=== PATIENT | male | born 1955 | race Caucasian/White ===

== ENCOUNTER → 2017-05-31 | Outpatient (CLI) | payer BC ==
[~2017-05-31] MED LIST: AMOX1TAB61 PO; ATOR40TA PO; CLON0.5T3 PO; DOXY100C2 PO; ERGO500027 PO; FENT1PAT21 TD; FLUT12AE IH; HYDR4TAB45 PO; LANS15TA6 PO; LEVO100T PO; LOSA25TA PO; MONT10TA9 PO; MULT-208 PO; PRED2.5T PO; PREG200C PO
== END | disposition home or self-care (01) ==
LOC: SPEC 13:09
PROVIDERS: ATTEND Podiatrist Foot & Ankle Surgery
DX: M86.9 Osteomyelitis, unspecified (principal)
CPT/HCPCS: 87071; 87075; 87186; 87205

== ENCOUNTER 2017-06-08 10:02 | Day surgery (SDC) | payer BC ==
[~2017-06-08] VITALS: Ht 170.2 cm; Wt 74.8 kg
[~2017-06-08 10:02] MED LIST changes: -AMOX1TAB61 PO; -ATOR40TA PO; -CLON0.5T3 PO; -DOXY100C2 PO; -ERGO500027 PO; -FENT1PAT21 TD; -FLUT12AE IH; -HYDR4TAB45 PO; +HYDROmorphone 2 MG/ML VIAL IV PRN; +IV RINGERS,LACTATED 1000ML 1,000 ML IV SCH; -LANS15TA6 PO; -LEVO100T PO; +LIDOCAINE 1% 1 ML SYRINGE. ID PRN; -LOSA25TA PO; -MONT10TA9 PO; +MORPHINE SULFATE 2 MG/ML DISP.SYRIN. IV PRN; -MULT-208 PO; +ONDANSETRON PF 4 MG/2 ML VIAL. IV PRN; -PRED2.5T PO; -PREG200C PO; +PROCHLORPERAZINE 10 MG/2 ML VIAL. IV PRN; +fentaNYL PF VIAL 100 MCG/2 ML VIAL IV PRN
[2017-06-08] MEDS ORDERED: POVIDONE-IODINE 10% TOPICAL OINTMENT 28GM TUBE. TP ONE (10:17)
[2017-06-08] MEDS ORDERED: LIDOCAINE 1% 20 ML VIAL. ONE ×2 (10:17→11:59)
[2017-06-08] MEDS ORDERED: DEXAMETHASONE SOD PHOS 4 MG/ML VIAL ONE (10:17)
[2017-06-08] MEDS ORDERED: BUPIVACAINE MPF 0.5% 30 ML VIAL. ONE ×2 (10:17→11:59)
[2017-06-08] MEDS ORDERED: MONT10TA9 PO (10:30)
[2017-06-08] MEDS ORDERED: AMOX1TAB61 PO (10:30)
[2017-06-08] MEDS ORDERED: PRED2.5T PO (10:30)
[2017-06-08] MEDS ORDERED: FENT1PAT21 TD (10:30)
[2017-06-08] MEDS ORDERED: PREG200C PO (10:30)
[2017-06-08] MEDS ORDERED: LEVO100T PO (10:30)
[2017-06-08] MEDS ORDERED: ATOR40TA PO (10:30)
[2017-06-08] MEDS ORDERED: DOXY100C2 PO (10:30)
[2017-06-08] MEDS ORDERED: LOSA25TA PO (10:30)
[2017-06-08] MEDS ORDERED: ERGO500027 PO (10:30)
[2017-06-08] MEDS ORDERED: LANS15TA6 PO (10:30)
[2017-06-08] MEDS ORDERED: CLON0.5T3 PO (10:30)
[2017-06-08] MEDS ORDERED: HYDR4TAB45 PO (10:30)
[2017-06-08] MEDS ORDERED: FLUT12AE IH (10:30)
[2017-06-08] MEDS ORDERED: MULT-208 PO (10:30)
[2017-06-08 10:42] LABS: BASO # 0.1 x10^3/uL (0.0-0.2); BASO % 1 % (0-3); EOS % 1 % (0-3); HEMATOCRIT 41.5 % (39.0-53.0); HEMOGLOBIN 13.5 g/dL (13.0-17.5); LYMPH # 2.5 x10^3/uL (1.0-4.8); LYMPH % 23 % (24-48); MEAN CORPUSCULAR HEMOGLOBIN 29 pg (25-35); MEAN CORPUSCULAR HGB CONC 33 g/dL (31-37); MEAN CORPUSCULAR VOLUME 89 fL (79-100); MONO % 11 % (0-9); NEUT % 64 % (31-73); PLATELET COUNT 371 x10^3/uL (140-400); RED BLOOD COUNT 4.68 x10^6/uL (4.30-5.70); RED CELL DISTRIBUTION WIDTH 15.3 % (11.5-14.5); WHITE BLOOD COUNT 10.5 x10^3/uL (4.0-11.0)
[2017-06-08 10:53] LABS: CALCIUM 9.6 mg/dL (8.5-10.1); CREATININE 1.4 mg/dL (0.7-1.3); GFR 51.5; POTASSIUM 3.5 mmol/L (3.5-5.1)
[2017-06-08 10:59] LABS: ALBUMIN 3.4 g/dL (3.4-5.0); ALBUMIN/GLOBULIN RATIO 0.9 (1.0-1.7); TOTAL BILIRUBIN 0.4 mg/dL (0.2-1.0)
[2017-06-08] MEDS ORDERED: fentaNYL PF VIAL 100 MCG/2 ML VIAL ONE (11:44)
[2017-06-08] MEDS ORDERED: MIDAZOLAM HCL/PF 2 MG/2 ML VIAL. ONE (11:44)
[2017-06-08] MEDS ORDERED: LIDOCAINE 2% PF Vial for OR 5 ML VIAL. ONE (11:44)
[2017-06-08] MEDS ORDERED: ONDANSETRON PF 4 MG/2 ML VIAL. ONE (11:44)
[2017-06-08] MEDS ORDERED: PROPOFOL 20 ML IV ONE (11:44)
[2017-06-08] MEDS ORDERED: DEXAMETHASONE SOD PHOS 20 MG/5 ML VIAL. ONE (11:44)
[2017-06-08 12:57] LABS: C-REACTIVE PROTEIN 8.6 mg/L (0-3.3)
[2017-06-08] MEDS ORDERED: ePHEDrine PF IN SALINE 50 MG/5 ML DISP.SYRIN IV ONE (13:09)
[2017-06-08] MEDS ORDERED: SEVOFLURANE 31 TO 60 MINUTES. IH ONE (13:22)
[2017-06-08] MEDS ORDERED: BACITRACIN TOPICAL OINT 14GM TUBE. TP ONE (13:42)
--- NOTE | 2017-06-08 14:04 | PDOC4 ---
OPERATIVE NOTE: Surgeon: Pepe Pre operative diagnosis: Osteomyelitis 2nd digit right foot, venous stasis delayed healing ulcerations bilateral ankle Post operative diagnosis: Same Procedure: 2nd digit amputation right foot. Biopsy of ulceration bilateral ankle. Preparation of wound bed bilateral ankle ulceration. Application of Allograft Amnio-fix bilateral ankle wound Anesthesia: LMA with local Hemostasis: right ankle tourniquet at 250mmHg EBL: 1mL Materials: Amniofix allograft Specimen: 2nd digit right foot, 2mm punch biopsy bilateral ankle wounds Intraoperative findings: Note no proximal sinus tract 2nd toe. destruction of distal phalanx 2nd toe. Full thickness ulceration bilateral anterior ankle. Upon debridement of devitalized tissue to granular base measures the following Right ankle anterior 1.7x2.5x0.2cm and just lateral to this 1.8x.1.5x0.1cm. Left ankle proximal wound 1.1x1.6x0.2cm and just distal to 2.3x1.5x0.2cm Patient tolerated anesthesia and procedure well transferred to PACU with VSS and VSI to bilateral foot FRANCISCO HERNÁNDEZ DPM Jun 08, 2017 14:04
[2017-06-08] MEDS ORDERED: HYDROmorphone 4 MG TABLET PO ONE (14:30)
[2017-06-08 15:04] VITALS: BP 140/78
--- NOTE | 2017-06-08 15:31 | RAD ---
Indication postop. AP oblique and lateral views of the right foot were obtained. The patient is status post amputation of the second toe. Postoperative changes are seen involving the soft tissues. There are degenerative changes between the first and second cuneiform bones. Soft tissue calcifications are noted as well as vascular calcification. IMPRESSION: Status post amputation of the second toe. No unexpected finding seen
--- NOTE | 2017-06-08 15:36 | OP ---
DATE OF SURGERY: 06/08/2017 PREOPERATIVE DIAGNOSES: Osteomyelitis, second digit, right foot and also venous stasis ulceration of bilateral ankles, delayed healing. POSTOPERATIVE DIAGNOSES: Osteomyelitis, second digit, right foot and also venous stasis ulceration of bilateral ankles, delayed healing. PROCEDURE: 1. Second digit amputation, right foot. 2. Biopsy of ulceration, bilateral ankles. 3. Preparation of wound bed, bilateral ankle ulcerations. 4. Application of allograft AmnioFix to bilateral ankle wounds. SURGEON: Olayinka Cantu DPM ANESTHESIA: LMA with local. HEMOSTASIS: Right ankle tourniquet at 250 mmHg. INDICATIONS: The patient is a 62-year-old male who was seen in the office last week May 31. He was noted to have a draining ulceration, full thickness to the second digit with probing and sinus tracts. X-ray was taken and showed destruction of the distal phalanx consistent with osteomyelitis. Discussed the preoperative diagnosis as well as possible risks, benefits, and complications. The patient wished to proceed with outpatient surgery, thus he was started on antibiotics and scheduled today for a second digit amputation as well as biopsy and wound bed preparation and application of allograft. Due to the amount of time he has had this greater than 10 years, recommended biopsy, which he consented to. Discussed possible risks, benefits, complications. All questions were answered. No guarantees were made. DESCRIPTION OF PROCEDURE: The patient was transported to the operating room via cart. He was given 1 gram of IV Ancef preoperatively. The bilateral legs were prepped and draped in the usual aseptic manner. We gave a digital block to the second toe consisting of a 1:1 mixture of 1% lidocaine plain and 0.5% Marcaine plain. Also, gave supplemental injection local infiltrative block to bilateral ankle wounds. Next, the feet were prepped and draped in the usual aseptic manner. Attention was directed first to the right foot. The right Esmarch bandage was used to exsanguinate the right foot and the right calf tourniquet was inflated to 250 mmHg. Attention was directed to the second digit where a tennis racquet incision was made over the second toe and deepened to the level of the second metatarsophalangeal joint. This was disarticulated at the MPJ and noted the infection seemed to be localized to the toe. There was no proximal ____. There was no sinus tract. There was no devitalized tissue left behind. The metatarsal head was white and glistening. At this time, small vessels were cauterized. We took a wound culture, aerobic and anaerobic and cauterized small vessels and copiously irrigated the wound with sterile saline and reapproximated the skin with 4-0 nylon. A postop dressing was applied with Betadine-soaked Adaptic gauze, 4 x 4, Kerlix bandage. The ankle tourniquet was deflated. Next, the attention was directed to the right ankle wounds, used a curette to prep the wound bed and devitalized tissue down to granular base. Next, used a 2 mm punch biopsy to obtain a biopsy of this wound. The biopsy was sent to pathology and note on the right ankle, there was an anterior wound measuring 1.7 x 2.5 x 0.2 cm and just lateral to this wound, there was a second wound 1.8 x 1.5 x 0.1 cm. Next, applied AmnioFix allograft to the right ankle and applied antibiotic ointment and Adaptic gauze to keep moist, then applied 4 x 4 gauze, Kerlix bandage roll. Decision was made not to apply Steri-Strips because they were concerned with the friability of his skin. Next, attention was directed to the left ankle and again, the wound was prepped with a curette down to debride devitalized tissue to granular base. A 2 mm punch biopsy was taken from both ulcerations and sent to pathology for further evaluation. The proximal wound upon debridement measured 1.1 x 1.6 x 0.2 cm and just distal to this measured 2.3 x 1.5 x 0.2 cm. Applied the allograft AmnioFix and again applied antibiotic ointment as well as Adaptic gauze, 4 x 4s, and a Kerlix bandage. Then, both legs were wrapped with Webril, soft roll as well as 4-inch and a 6-inch Nile bandage to control swelling. The patient tolerated both anesthesia and procedure well and was transported to the PACU with vital signs stable and vascular status intact. The patient is to have x-rays taken in the PACU. He is to have a surgical shoe to bilateral foot and he is to keep dressings clean, dry and intact until followup appointment in 1 week in the [facility] office Monday. The patient to call if he has any problems. OLAYINKA CANTU DPM DR: Jovanny JOB#: [id number] / [id number]
--- NOTE | 2017-06-13 16:19 | PATHOLOGY ---
PATHOLOGY REPORT * * * * * * * * FINAL DIAGNOSIS: A. Right foot second toe, amputation: - Acute and chronic cellulitis and osteomyelitis of distal toe with destruction of distal phalangeal bone. B. Right ankle biopsy: - Segment of dense fibrous tissue identified. C. Left ankle biopsy: - Segments of dense fibrous tissue with focal granulation tissue and mild acute inflammation. (JPM:saul; 06/13/2017) REPORT ELECTRONICALLY SIGNED BY: Humble Bedolla M.D. DATE/TIME: 06/13/2017 16:18 * * * * * * * * GROSS PATHOLOGY: A. The specimen is received in formalin, labeled "Atul Brumfield, right foot second toe" and consists of a toe amputation specimen disarticulated at the metatarsophalangeal joint measuring 5.8 x 2.2 x 2.1 cm. The soft tissue at the margin resection appears grossly viable. The skin surface is pink-foster to joy, wrinkled and focally desquamated. The nail is absent. At the distal tip the skin has a ragged, congested appearance. The soft tissue has a joy-yellow, focally congested cut surface. The bone is joy-yellow and trabeculated. No additional abnormalities are noted. The section of the skin lesion is submitted in cassette A1 and a full-thickness, longitudinal section is submitted in cassettes A2-A4 after fixation and decalcification. B. The specimen is received in formalin, labeled "Atul Brumfield, right ankle biopsy" and consists of a core of joy-foster, firm tissue measuring 0.4 cm in length by 0.2 cm in diameter. The specimen is entirely submitted in cassette B1 after fixation and brief decalcification. C. The specimen is received in formalin, labeled "Atul Brumfield, left ankle biopsy" and consists of two cores of joy-foster, firm tissue measuring 0.5 and 1.0 cm in length each with a diameter of 0.2 cm. The specimens are entirely submitted in cassette C1 after fixation and brief decalcification. (MASOUD; 06/09/2017) INITIAL CPT CODE(S): A; 74127, 23438 B; 46354 C; 81742 Professional services performed by [facility] at [address] [address] Technical services performed by [facility] at [address] [place] [address], [address], [place] [address]. SPECIMEN(S) RECEIVED: A.Right foot second toe B.Right ankle biopsy x 1 C.Left ankle biopsy x 2 CLINICAL HISTORY: Osteomyelitis PATIENT: ATUL BRUMFIELD JR /AGE: 704/23/1955 (Age: 62) PATIENT #: [id number] ALT CASE #: SPECIMEN COLLECTION DATE: 06/08/2017 SPECIMEN RECEIVED DATE: 06/09/2017 [facility] - [id number] [place] [address] - PHONE: [phone] * * * END OF REPORT * * *
== END 2017-06-08 15:39 | disposition home or self-care (01) ==
LOC: SURG 10:02 → MERGE 12:00 → SURG 15:39
PROVIDERS: ATTEND Podiatrist Foot & Ankle Surgery
DX: M86.8X7 Other osteomyelitis, ankle and foot (principal); I87.8 Other specified disorders of veins; L97.329 Non-pressure chronic ulcer of left ankle with unspecified severity; L97.319 Non-pressure chronic ulcer of right ankle with unspecified severity; J45.909 Unspecified asthma, uncomplicated; E78.00 Pure hypercholesterolemia, unspecified; Z87.39 Personal history of other diseases of the musculoskeletal system and connective tissue; E03.9 Hypothyroidism, unspecified; F41.9 Anxiety disorder, unspecified; F32.9 Major depressive disorder, single episode, unspecified; I12.9 Hypertensive chronic kidney disease with stage 1 through stage 4 chronic kidney disease, or unspecified chronic kidney disease; N18.3 Chronic kidney disease, stage 3 (moderate); M19.91 Primary osteoarthritis, unspecified site; Z98.42 Cataract extraction status, left eye; Z98.41 Cataract extraction status, right eye; Z86.69 Personal history of other diseases of the nervous system and sense organs
CPT/HCPCS: 11042; 11100; 11101; 15271; 28820; 36415; 73630; 80053; 85025; 85651; 86140; 87071; 87075; 87205; C1713; C1769; J0690; J1100; J2250; J2405; J2704; J3010; J3490; 88304; 88305; 88311; J2001

== ENCOUNTER 2017-11-30 09:50 | Day surgery (SDC) | payer BC ==
[2017-11-30] MEDS: IV RINGERS,LACTATED 1000ML 1,000 ML IV (07:00)
[~2017-11-30 09:50] MED LIST changes: +HYDROmorphone 2 MG/ML VIAL IV; -HYDROmorphone 2 MG/ML VIAL IV PRN; -IV RINGERS,LACTATED 1000ML 1,000 ML IV SCH; -LIDOCAINE 1% 1 ML SYRINGE. ID PRN; +LIDOCAINE 1% PF 2 ML VIAL. ID; +MORPHINE SULFATE 2 MG/ML DISP.SYRIN. IV; -MORPHINE SULFATE 2 MG/ML DISP.SYRIN. IV PRN; +ONDANSETRON PF 4 MG/2 ML VIAL. IV; -ONDANSETRON PF 4 MG/2 ML VIAL. IV PRN; +PROCHLORPERAZINE 10 MG/2 ML VIAL. IV; -PROCHLORPERAZINE 10 MG/2 ML VIAL. IV PRN; +fentaNYL PF VIAL 100 MCG/2 ML VIAL IV; -fentaNYL PF VIAL 100 MCG/2 ML VIAL IV PRN
[2017-11-30] MEDS ORDERED: POVIDONE-IODINE 10% TOPICAL OINTMENT 28GM TUBE. TP (10:34)
[2017-11-30] MEDS ORDERED: DEXAMETHASONE SOD PHOS 4 MG/ML VIAL (10:34)
[2017-11-30] MEDS ORDERED: LIDOCAINE 2% PF Vial for OR 5 ML VIAL. (11:44)
[2017-11-30] MEDS ORDERED: PROPOFOL 20 ML IV (11:44)
[2017-11-30] MEDS ORDERED: ONDANSETRON PF 4 MG/2 ML VIAL. (11:44)
[2017-11-30] MEDS ORDERED: FAMOTIDINE 20 MG/2 ML VIAL (11:44)
[2017-11-30] MEDS ORDERED: DEXAMETHASONE SOD PHOS 20 MG/5 ML VIAL. (11:44)
[2017-11-30] MEDS ORDERED: fentaNYL PF VIAL 100 MCG/2 ML VIAL (11:45)
[2017-11-30] MEDS ORDERED: MIDAZOLAM HCL/PF 2 MG/2 ML VIAL. (11:45)
[2017-11-30] MEDS: BUPIVACAINE MPF 0.5% 30 ML VIAL. (12:22)
[2017-11-30] MEDS: LIDOCAINE 1% PF 30 ML VIAL. (12:22)
[2017-11-30] MEDS ORDERED: ePHEDrine PF IN SALINE 50 MG/5 ML DISP.SYRIN IV (12:28)
[2017-11-30] MEDS ORDERED: SEVOFLURANE 31 TO 60 MINUTES. IH (12:40)
[2017-11-30] MEDS: HYDROcodone/APAP 5/325MG 1 TAB TABLET PO (13:47)
== END 2017-11-30 14:25 | disposition home or self-care (01) ==
LOC: SURG 09:50
DX: M86.672 Other chronic osteomyelitis, left ankle and foot (principal); L97.529 Non-pressure chronic ulcer of other part of left foot with unspecified severity; Z89.422 Acquired absence of other left toe(s); Z85.828 Personal history of other malignant neoplasm of skin; E78.00 Pure hypercholesterolemia, unspecified; I10 Essential (primary) hypertension; J45.909 Unspecified asthma, uncomplicated; Z90.49 Acquired absence of other specified parts of digestive tract; Z86.010 Personal history of colon polyps; M19.90 Unspecified osteoarthritis, unspecified site; K21.9 Gastro-esophageal reflux disease without esophagitis; E03.9 Hypothyroidism, unspecified; F32.9 Major depressive disorder, single episode, unspecified; F41.9 Anxiety disorder, unspecified; Z98.52 Vasectomy status; E66.9 Obesity, unspecified
CPT/HCPCS: 28820; 73630; 88305; 88311; C1769; J0690; J1100; J2250; J2405; J2704; J3010; J3490; S0028

== ENCOUNTER 2018-01-12 10:36 | Day surgery (SDC) | payer BC ==
[~2018-01-12 10:36] MED LIST changes: +DEXAMETHASONE SOD PHOS 4 MG/ML VIAL; -HYDROmorphone 2 MG/ML VIAL IV; -MORPHINE SULFATE 2 MG/ML DISP.SYRIN. IV; +MORPHINE SULFATE 4 MG/ML DISP.SYRIN. IV; +POVIDONE-IODINE 10% TOPICAL OINTMENT 28GM TUBE. TP
[2018-01-12] MEDS: IV RINGERS,LACTATED 1000ML 1,000 ML IV (11:19)
[2018-01-12] MEDS ORDERED: PROPOFOL 20 ML IV (12:16)
[2018-01-12] MEDS ORDERED: fentaNYL PF VIAL 100 MCG/2 ML VIAL ×2 (12:16→13:52)
[2018-01-12] MEDS ORDERED: ONDANSETRON PF 4 MG/2 ML VIAL. (12:16)
[2018-01-12] MEDS ORDERED: LIDOCAINE 1% PF 5 ML VIAL. (12:16)
[2018-01-12] MEDS ORDERED: DEXAMETHASONE SOD PHOS 20 MG/5 ML VIAL. (12:16)
[2018-01-12] MEDS ORDERED: SEVOFLURANE 16 TO 30 MINUTES. IH (12:21)
[2018-01-12] MEDS ORDERED: PHENYLEPHRINE in 0.9% NACL PF 1 MG/10 ML SYRINGE. IV (13:15)
[2018-01-12] MEDS ORDERED: GLYCOPYRROLATE 1 MG/5 ML VIAL. (13:19)
[2018-01-12] MEDS: LIDOCAINE 1% 20 ML VIAL. (13:20)
[2018-01-12] MEDS: BUPIVACAINE MPF 0.5% 30 ML VIAL. (13:20)
[2018-01-12] MEDS: fentaNYL PF VIAL 100 MCG/2 ML VIAL IV ×2 (14:13→14:25)
== END 2018-01-12 15:00 | disposition home or self-care (01) ==
LOC: SDC 10:36
DX: M86.8X7 Other osteomyelitis, ankle and foot (principal); I10 Essential (primary) hypertension; F41.9 Anxiety disorder, unspecified; F32.9 Major depressive disorder, single episode, unspecified; E03.9 Hypothyroidism, unspecified; Z98.890 Other specified postprocedural states; Z79.899 Other long term (current) drug therapy
CPT/HCPCS: 28820; 73630; 87071; 87075; 87205; 88305; 88311; J0690; J1100; J2370; J2405; J2704; J3010; J3490; J7120